=== PATIENT | female | born 1990 | race African-American/Black ===

== ENCOUNTER 2022-12-19 11:22 | Emergency (ER) | payer BC ==
[~2022-12-19] VITALS: Ht 167.6 cm; Wt 61.4 kg
[2022-12-19 11:54] LABS: BASOPHILS % 0.3 % (0.0-2.0); EOSINOPHILS % 1.5 % (0.0-5.0); HEMATOCRIT. 35.8 % (36.0-48.0); HEMOGLOBIN. 11.9 g/dL (12.0-16.0); LYMPHOCYTES % 22.9 % (20.0-50.0); MEAN CORPUSCULAR HEMOGLOBIN 29.7 pg (28.0-32.0); MEAN CORPUSCULAR VOLUME 89.2 fL (81.0-99.0); MEAN PLATELET VOLUME 7.8 fl (7.4-10.4); MONOCYTES % 7.5 % (2.0-8.0); NEUTROPHILS % 67.8 % (40.0-76.0); PLATELET 280 x1000/uL (130-400); RED BLOOD CELL COUNT 4.01 mill/uL (4.2-5.4); RED CELL DISTRIBUTION WIDTH 14.4 % (11.6-14.6)
[2022-12-19 12:03] LABS: CHLORIDE 108 mEq/L (98-107)
[2022-12-19] MEDS ORDERED: ONDANSETRON HCL 4MG/2ML INJ IV STA (14:35)
[2022-12-19 15:03] LABS: CLARITY URINE TURBID (CLEAR); COLOR URINE RED (YELLOW); KETONES URINE NEGATIVE (NEGATIVE); LEUKOCYTE ESTERASE URINE 2+ (NEGATIVE); NITRITE URINE NEGATIVE (NEGATIVE); OCCULT BLOOD URINE 3+ (NEGATIVE); PH URINE 7.5 (4.5-8.0); PROTEIN URINE 2+ (NEGATIVE); SPECIFIC GRAVITY URINE 1.021 (1.005-1.030); UROBILINOGEN URINE 0.2 E.U./dL (0.2-1.0)
[2022-12-19 15:23] LABS: HCG SCREEN NEGATIVE
[2022-12-19] MEDS ORDERED: KETOROLAC 15MG/ML VIAL IV ONE (17:00)
[2022-12-19] MEDS ORDERED: ONDANSETRON HCL 4MG/2ML INJ IV NR (18:00)
[2022-12-19] MEDS ORDERED: MORPHINE SULFATE 4 MG/ML CPJ (NOT FOR IM USE) IV SCH (18:30)
[2022-12-19] MEDS ORDERED: HYDR-4001 MT ×3 (19:30→20:52)
[2022-12-19 19:38] VITALS: BP 117/77
== END 2022-12-19 20:05 | disposition home or self-care (01) ==
LOC: ER 11:22
DX: N83.201 Unspecified ovarian cyst, right side (principal); J45.909 Unspecified asthma, uncomplicated; Z88.6 Allergy status to analgesic agent; Z98.890 Other specified postprocedural states
CPT/HCPCS: 36415; 76830; 76856; 80053; 81003; 81025; 84703; 85025; 96374; 96375; 99285; J1885; J2270; J2405; Z7610